=== PATIENT | female | born 1990 | race Caucasian/White ===

== ENCOUNTER 2019-10-19 09:52 | Day surgery (SDC) | payer OTHER ==
[2019-10-19] MEDS ORDERED: MORPHINE 4 MG/ML SYR ONE ×2 (10:13→12:15)
[2019-10-19] MEDS ORDERED: ONDANSETRON 4 MG/2 ML VIAL ONE ×2 (10:13→13:31)
[2019-10-19] MEDS ORDERED: NA CHLORIDE 0.9% 1,000 ML ONE ×2 (10:13→12:37)
[2019-10-19 10:30] LABS: Absolute Lymphocytes (CBC) 0.7 K/uL (0.7-4.9); Basophils % 0.5 % (0-1.3); Hematocrit 41.3 % (36.0-45.0); Lymphocytes % 6.5 % (15.3-44.8); MPV 8.1 fL (7.6-11.3); RBC Red Blood Cell Count 4.41 M/uL (3.86-4.86)
[2019-10-19 10:43] LABS: Bilirubin Direct 0.1 mg/dL (0-0.2); Bilirubin Total 0.7 mg/dL (0.2-1.0); Potassium 3.7 mmol/L (3.5-5.1)
[2019-10-19 10:44] LABS: Albumin 4.1 g/dL (3.4-5.0); Protein, Total 8.2 g/dL (6.4-8.2)
--- OUTSIDE RECORDS SUMMARY | 2019-10-19 11:28 | XMS REPORT ---
:1990 Author Organization [facility] t Address [address] [place] [address] Care Team Providers Name Role Phone Unavailable Unavailable Unavailable Payers Payer Name Policy Type Policy Number Effective Date Expiration D ate Problems This patient has no known problems. Allergies, Adverse Reactions, Alerts Allergy Name Allergy Status Severity Reaction(s) Onset Inactive Treat ing Comments Type Date Date Clinician No Known Drug DA Active U Intolerances 2-05 00:00: 00 Medications This patient has no known medications. Results Test Description Test Time Test Comments Text Results Atomic Results Result Comments HGB HCT 2019-08-19 05:05:00 Test Item Value Reference Range Comments HEMOGLOBIN (test code = HGB) 10.3 g/dL 10.7-13.9 HEMATOCRIT (test code = HCT) 30.5 % 32.1-42.1 AG HEPATITIS B [id number] 17:56:00 Test Item Value Reference Range Comments AG HEPATITIS B SURFACE (test code = HBSAG) NONREACTIVE NONRE ACTIVE IS CONSENT FORM SIGNED FOR HIV TESTING? YAB HEPATITIS C [id number] 17:56:00 Test Item Value Reference Range Comments AB HEPATITIS C (test code = HCVAB) NONREACTIVE NONREACTIVE SIGNAL TO CUTOFF (test code = CUTOFF) 0.15 <0.80 IS CONSENT FORM SIGNED FOR HIV TESTING? YAB [id number] 17:56:00 Test Item Value Reference Range Comments AB TREPONEMA (test code = TREPAB) NONREACTIVE NONREACTIVE IS CONSENT FORM SIGNED FOR HIV TESTING? YAB HIV 1 17:56:00 Test Item Value Reference Range Comments AB HIV 1 2 (test code = NONREACTIVE NONREACTIVE Done b y Siemens Centaur 4th [id number]) Gen HIV Ag/Ab Co mbo Screen IS CONSENT FORM SIGNED FOR HIV TESTING? YAG HEPATITIS B [id number] 17:21:00 Test Item Value Reference Range Comments AG HEPATITIS B SURFACE (test code = HBSAG) NONREACTIVE NONRE ACTIVE IS CONSENT FORM SIGNED FOR HIV TESTING? YAB HEPATITIS C [id number] 17:21:00 Test Item Value Reference Range Comments AB HEPATITIS C (test code = HCVAB) NONREACTIVE SIGNAL TO CUTOFF (test code = CUTOFF) <0.80 IS CONSENT FORM SIGNED FOR HIV TESTING? YAB [id number] 17:21:00 Test Item Value Reference Range Comments AB TREPONEMA (test code = TREPAB) NONREACTIVE NONREACTIVE IS CONSENT FORM SIGNED FOR HIV TESTING? YAB HIV 1 17:21:00 Test Item Value Reference Range Comments AB HIV 1 2 (test code = EPH76AF) NONREACTIVE IS CONSENT FORM SIGNED FOR HIV TESTING? YCBC W/AUTO [id number] 16:36:00 Test Item Value Reference Range Comments WHITE BLOOD CELL (test code = WBC) 11.3 K/mm3 6.6-12.1 RED BLOOD CELL (test code = RBC) 3.66 M/mm3 3.45-5.01 HEMOGLOBIN (test code = HGB) 12.2 g/dL 10.7-13.9 HEMATOCRIT (test code = HCT) 35.2 % 32.1-42.1 MEAN CELL VOLUME (test code = MCV) 96 fL 84.1-94.8 MEAN CELL HGB (test code = MCH) 33.3 pg 27-35 MEAN CELL HGB CONCETRATION (test code = MCHC) 34.7 gm/dL 32 .2-34.1 RED CELL DISTRIBUTION WIDTH (test code = RDW) 13.1 % 12 .4-16.5 PLATELET COUNT (test code = PLT) 247 K/mm3 133-385 MEAN PLATELET VOLUME (test code = MPV) 10.4 fl 9.1-12.7 NEUTROPHIL % (test code = NT%) 74.5 % 56.5-79.4 LYMPHOCYTE % (test code = LY%) 16.7 % 14.3-34.3 MONOCYTE % (test code = MO%) 6.3 % 5.1-10.4 EOSINOPHIL % (test code = EO%) 1.7 % 0.1-3.0 BASOPHIL % (test code = BA%) 0.4 % 0.1-1.0 NEUTROPHIL # (test code = NT#) 8.5 K/mm3 LYMPHOCYTE # (test code = LY#) 1.9 K/mm3 MONOCYTE # (test code = MO#) 0.7 K/mm3 EOSINOPHIL # (test code = EO#) 0.19 K/mm3 BASOPHIL # (test code = BA#) 0.0 K/mm3 RBC MORPHOLOGY REQUIRED (test code = RBCM) NORMAL MADDISON L PLATELET MORPHOLOGY REQUIRED (test code = PLTMR) NORMAL NORMAL URINALYSIS W/O [id number] 16:36:00 Test Item Value Reference Range Comments UA GLUCOSE DIPSTICK (test code = DGLUU) NEGATIVE NEGATIVE UA KETONE DIPSTICK (test code = KETU) NEGATIVE NEGATIVE UA PROTEIN DIPSTICK (test code = PROU) NEGATIVE NEGATIVE IS NURSE PERFORMING TEST? N
--- NOTE | 2019-10-19 11:56 | RAD REPORT ---
EXAM DESCRIPTION: CT - Abdomen Pelvis W Contrast - 10/19/2019 11:37 am CLINICAL HISTORY: ABD PAIN COMPARISON: No comparisons TECHNIQUE: Biphasic, helical CT imaging of the abdomen and pelvis was performed following 100 ml non -ionic IV contrast. No oral contrast given. All CT scans are performed using dose optimization technique as appropriate and may include automated exposure control or mA/KV adjustment according to patient size. FINDINGS: No suspicious findings in the lung bases. The liver, spleen, and pancreas show no suspicious findings. Gallbladder and biliary tree are also wi thout suspicious finding. Severe hydronephrosis is present in the right collecting system. There is pronounced dilatation of th e pelvis, calices and ureters down to the pelvic inlet where there is a 9 millimeter obstructing ston e. No other obstructing or nonobstructing calculi seen. Right renal function is delayed. Stranding an d fluid are present in the perinephric fat. No pyelonephritis findings. No solid mass lesion identifi able. On a KUB projection the obstructing stone is approximately 1.5 cm inferior to the right sacral ala. Normal function of the left kidney with no hydronephrosis, mass, pyelonephritis or acute left side fi nding. Urinary bladder is fully contracted limiting assessment. No bladder calculus seen. No adrenal abnormalities. Uterus and ovaries show no suspicious findings. No dilated bowel loops or bowel wall thickening. No free air, free fluid or inflammatory stranding. No hernia, mass or bulky lymphadenopathy. No suspicious bony findings. IMPRESSION: Severe right-sided hydronephrosis secondary to an obstructing 9 millimeter stone at the pelvic inlet. On a KUB projection the obstructing stone is inferior to the right sacral ala.
[2019-10-19 12:15] LABS: Urine Blood 3+ (NEG); Urine Glucose NEGATIVE (NEG); Urine Protein 1+ (NEG); Urine Specific Gravity 1.025 (1.005-1.030)
--- NOTE | 2019-10-19 12:20 | ER ---
Nurse's Notes [facility] Name: Stalin Dumont Age: 29 yrs Sex: Female : 1990 Arrival Date: 10/19/2019 Time: 09:53 Bed 19 Private MD: Diagnosis: Hydronephrosis with renal and ureteral calculous obstruction Presentation: 10/18 10:06 Acuity: KYARA 3 sv 10:06 Chief complaint: Patient states: RUQ pain that radiates to LUQ since 2200 yesterday, sv reports chills/fever Tmax 99, vomiting as well. Denies cough/congestion. Reports s/o on 08/18/19 and has had her menstrual cycle for 3 weeks now and started control as well. Coronavirus screen: Proceed with normal triage. Patient denies a cough. Patient denies shortness of breath or difficulty breathing. Patient denies measured and/or subjective temperature greater than 100.4F prior to today's visit. Patient denies travel on a cruise ship or to a country the [facility] currently lists as an affected area. Patient denies contact with known and/or suspected case of COVID-19. Ebola Screen: No symptoms or risks identified at this time. Initial Sepsis Screen: Does the patient meet any 2 criteria? No. Patient's initial sepsis screen is negative. Does the patient have a suspected source of infection? No. Patient's initial sepsis screen is negative. Risk Assessment: Do you want to hurt yourself or someone else? Patient reports no desire to harm self or others. Onset of symptoms was October 18, 2019. 10:06 Method Of Arrival: Ambulatory sv Triage Assessment: 10:06 General: Appears uncomfortable, slender, well developed, Behavior is calm, cooperative, sv appropriate for age. Pain: Complains of pain in right upper quadrant and left upper quadrant Pain currently is 9 out of 10 on a pain scale. Pain began 1 day ago. Is continuous, Aggravated by increased activity, repositioning, Noted to be grimacing. Neuro: Level of Consciousness is awake, alert, obeys commands, Oriented to person, place, time, situation, Moves all extremities. Full function Gait is steady. Respiratory: Airway is patent Respiratory effort is even, unlabored, Respiratory pattern is regular, symmetrical. GI: Abdomen is flat, Abd is soft X 4 quads Abdomen is tender to palpation in right upper quadrant and left upper quadrant Reports upper abdominal pain, vomiting. Derm: Skin is pink, warm \T\ dry. 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 - Social history:: Smoking status: Patient denies any tobacco usage or history of. Patient uses alcohol, occasionally. Screenin:30 Abuse screen: Denies threats or abuse. Denies injuries from another. Nutritional sv screening: No deficits noted. Tuberculosis screening: No symptoms or risk factors identified. Fall Risk None identified. Assessment: 10:31 Reassessment: Patient appears in no apparent distress at this time. Patient and/or sv family updated on plan of care and expected duration. Pain level reassessed. Patient is alert, oriented x 3, equal unlabored respirations, skin warm/dry/pink. Patient states feeling better. Patient states symptoms have improved. 12:10 Reassessment: No changes from previously documented assessment. Patient and/or family ll1 updated on plan of care and expected duration. Pain level reassessed. Patient is alert, oriented x 3, equal unlabored respirations, skin warm/dry/pink. GI: Abdomen is flat, Bowel sounds present X 4 quads. Abd is soft X 4 quads Abdomen is tender to palpation in right upper quadrant and left upper quadrant Reports upper abdominal pain, nausea, vomiting. 12:46 GI: Bowel sounds present X 4 quads. ll1 Vital Signs: 10:06 BP 115 / 71; Pulse 60; Resp 20; Temp 98.6(O); Pulse Ox 99% ; Weight 52.16 kg; Height 5 sv ft. 5 in. (165.10 cm); Pain 9/10; 11:00 BP 125 / 77; Pulse 67; Resp 16; Pulse Ox 100% ; sv 11:00 Pain 3/10; sv 12:02 Pain 3/10; sv 10:06 Body Mass Index 19.14 (52.16 kg, 165.10 cm) sv ED Course: 09:53 Patient arrived in ED. fj1 09:56 Leeann Triplett RN is Primary Nurse. sv 09:56 [facility] Morrison [facility] pm1 09:56 Yunior Paige MD is Attending Physician. pm1 10:06 Triage completed. sv 10:06 Arm band placed on Patient placed in an exam room, on a stretcher. sv 10:06 Patient has correct armband on for positive identification. Placed in gown. Bed in low sv position. Call light in reach. Pulse ox on. NIBP on. Door closed. Head of bed elevated. 10:15 Inserted saline lock: 20 gauge in right antecubital area, using aseptic technique. sv Blood collected. Flushed right antecubital with 5 ml normal saline. 10:31 Awaiting lab results, Awaiting CT Scan. sv 10:31 Warm blanket given. Pillow given. sv 11:37 CT Abd/Pelvis - IV Contrast Only In Process Unspecified. EDMS 12:03 Primary Nurse role handed off by Leeann Triplett RN sv 12:06 Report given to Jaquan WYATT. sv 12:07 Jaquan Quinones RN is Primary Nurse. ll1 12:18 Sharee Vivar MD is Hospitalizing Provider. pm1 12:45 No provider procedures requiring assistance completed. Patient admitted, IV remains in ll1 place. Administered Medications: 10:15 Drug: NS 0.9% 1000 ml Route: IV; Rate: 1000 ml; Site: right antecubital; sv 12:10 Follow up: Response: No adverse reaction; RASS: Alert and Calm (0); IV Status: ll1 Completed infusion; IV Intake: 1000ml 10:15 Drug: Zofran (Ondansetron) 4 mg Route: IVP; Site: right antecubital; sv 11:00 Follow up: Response: No adverse reaction sv 10:17 Drug: morphine 4 mg {Note: rass2.} Route: IVP; Site: right antecubital; sv 11:00 Follow up: Pain 3/10; Response: No adverse reaction; Marked relief of symptoms; Pain is sv decreased; RASS: Alert and Calm (0) 12:02 Follow up: Pain 3/10 Adult; Response: No adverse reaction; Marked relief of symptoms; sv Pain is decreased; RASS: Alert and Calm (0) 12:16 Drug: morphine 4 mg Route: IVP; Site: left antecubital; 1 12:43 Follow up: Response: No adverse reaction; Nausea is increased; RASS: Alert and Calm (0) 1 12:44 Drug: NS 0.9% 1000 ml Route: IV; Rate: 125 ml/hr; Site: right antecubital; 1 12:44 Follow up: IV Status: Completed infusion; IV Intake: 1ml 1 Intake: 12:10 IV: 1000ml; Total: 1000ml. ll1 12:44 IV: 1ml; Total: 1001ml. 1 Outcome: 12:19 Decision to Hospitalize by Provider. pm1 12:46 Discharged to day surgery ll1 12:46 Condition: stable 12:46 Instructed on the need for admit. 12:48 Patient left the ED. 1 Signatures: Dispatcher [employer] Leeann Johnson RN RN Sundeep Morrison, AUBREE SOLE TRIMMER pm1 Ej Palm 1 Jaquan Quinones RN RN 1 Corrections: (The following items were deleted from the chart) 12:03 11:00 Response: No adverse reaction; Marked relief of symptoms sv sv 12:03 12:01 Pain 3/10 Adult; Response: No adverse reaction; Marked relief of symptoms; Pain sv is decreased; RASS: Alert and Calm (0) sv
--- NOTE | 2019-10-19 12:20 | EDPHYS ---
Physician Documentation [facility] Name: Stalin Dumont Age: 29 yrs Sex: Female : 1990 Arrival Date: 10/19/2019 Time: 09:53 Bed 19 Private MD: EDOUARD Physician Yunior Paige HPI: 10/18 10:50 This 29 yrs old Female presents to ER via Ambulatory with complaints of pm1 Abdominal Pain. 10:50 The patient presents with abdominal pain in the right upper quadrant. Onset: The pm1 symptoms/episode began/occurred last night, at 22:00. The symptoms radiate to left upper quadrant. Associated signs and symptoms: Pertinent positives: fever, vomiting, Menses for 3 weeks, Pertinent negatives: diarrhea, dysuria. The symptoms are described as achy. Modifying factors: The symptoms are alleviated by nothing, the symptoms are aggravated by nothing. Severity of pain: in the emergency department the pain is actually worse is a 9 / 10. The patient has not experienced similar symptoms in the past. 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 - Social history:: Smoking status: Patient denies any tobacco usage or history of. Patient uses alcohol, occasionally. ROS: 10:50 Neck: Negative for injury, pain, and swelling, Cardiovascular: Negative for chest pain, pm1 palpitations, and edema, Respiratory: Negative for shortness of breath, cough, wheezing, and pleuritic chest pain. 10:50 Back: Negative for injury and pain, MS/Extremity: Negative for injury and deformity, Skin: Negative for injury, rash, and discoloration. 10:50 Neuro: Negative for headache, weakness, numbness, tingling, and seizure. 10:50 Constitutional: Positive for chills, fever. 10:50 Abdomen/GI: Positive for abdominal pain, nausea and vomiting, Negative for diarrhea, constipation. Exam: 10:50 Constitutional: This is a well developed, well nourished patient who is awake, alert, pm1 and in no acute distress. Head/Face: Normocephalic, atraumatic. Chest/axilla: Normal chest wall appearance and motion. Nontender with no deformity. No lesions are appreciated. Cardiovascular: Regular rate and rhythm with a normal S1 and S2 10:50 Back: No spinal tenderness. No costovertebral tenderness. Full range of motion. Skin: Warm, dry with normal turgor. Normal color with no rashes, no lesions, and no evidence of cellulitis. MS/ Extremity: Pulses equal, no cyanosis. Neurovascular intact. Full, normal range of motion. 10:50 Respiratory: Exam negative for acute changes, the patient does not display signs of respiratory distress, Respirations: normal. 10:50 Abdomen/GI: Inspection: abdomen appears normal, Palpation: soft, in all quadrants, mild abdominal tenderness, in the right upper quadrant, mass, is not appreciated, rebound tenderness, is not appreciated. 10:50 Neuro: Exam negative for acute changes, Orientation: is normal, Mentation: is normal, Motor: is normal, moves all fours. Vital Signs: 10:06 BP 115 / 71; Pulse 60; Resp 20; Temp 98.6(O); Pulse Ox 99% ; Weight 52.16 kg; Height 5 sv ft. 5 in. (165.10 cm); Pain 9/10; 11:00 BP 125 / 77; Pulse 67; Resp 16; Pulse Ox 100% ; sv 11:00 Pain 3/10; sv 12:02 Pain 3/10; sv 10:06 Body Mass Index 19.14 (52.16 kg, 165.10 cm) sv MDM: 09:58 Patient medically screened. [facility] 10:56 Data reviewed: vital signs. Data interpreted: Pulse oximetry: on room air is 99 %. pm1 Interpretation: normal. 12:07 Counseling: I had a detailed discussion with the patient and/or guardian regarding: the pm1 historical points, exam findings, and any diagnostic results supporting the discharge/admit diagnosis, lab results, radiology results. 12:14 Physician consultation: Sharee Vivar MD was called at 12:16, was contacted at 12:16, pm1 regarding consult, patient's condition. 10/18 10:03 Order name: Basic Metabolic Panel; Complete Time: 10:47 pm1 10/18 10:03 Order name: CBC with Diff; Complete Time: 10:37 pm1 10/18 10:03 Order name: Creatinine for Radiology; Complete Time: 10:56 pm1 10/18 10:03 Order name: Hepatic Function; Complete Time: 10:47 pm1 10/18 10:03 Order name: Lipase; Complete Time: 10:47 pm1 10/18 12:07 Order name: Urine Dipstick--Ancillary (enter results); Complete Time: 12:20 bd 10/18 10:03 Order name: IV Saline Lock; Complete Time: 10:33 pm1 10/18 10:04 Order name: CT Abd/Pelvis - IV Contrast Only; Complete Time: 11:57 pm1 10/18 12:07 Order name: Urine --Ancillary (enter results); Complete Time: 12:20 bd 10/18 10:03 Order name: Labs collected and sent; Complete Time: 10:33 pm1 10/18 10:03 Order name: Urine Dipstick-Ancillary (obtain specimen); Complete Time: 11:37 pm1 10/18 10:03 Order name: Urine Test (obtain specimen); Complete Time: 11:37 pm1 10/18 12:21 Order name: NPO; Complete Time: 12:44 pm1 Administered Medications: 10:15 Drug: NS 0.9% 1000 ml Route: IV; Rate: 1000 ml; Site: right antecubital; sv 12:10 Follow up: Response: No adverse reaction; RASS: Alert and Calm (0); IV Status: ll1 Completed infusion; IV Intake: 1000ml 10:15 Drug: Zofran (Ondansetron) 4 mg Route: IVP; Site: right antecubital; sv 11:00 Follow up: Response: No adverse reaction sv 10:17 Drug: morphine 4 mg {Note: rass2.} Route: IVP; Site: right antecubital; sv 11:00 Follow up: Pain 3/10; Response: No adverse reaction; Marked relief of symptoms; Pain is sv decreased; RASS: Alert and Calm (0) 12:02 Follow up: Pain 3/10 Adult; Response: No adverse reaction; Marked relief of symptoms; sv Pain is decreased; RASS: Alert and Calm (0) 12:16 Drug: morphine 4 mg Route: IVP; Site: left antecubital; ll1 12:43 Follow up: Response: No adverse reaction; Nausea is increased; RASS: Alert and Calm (0) ll1 12:44 Drug: NS 0.9% 1000 ml Route: IV; Rate: 125 ml/hr; Site: right antecubital; ll1 12:44 Follow up: IV Status: Completed infusion; IV Intake: 1ml ll1 Disposition: 10/19/19 12:19 Hospitalization ordered by Sharee Vivar for Observation. Preliminary diagnosis is Hydronephrosis with renal and ureteral calculous obstruction. - Bed requested for DAY SURGERY OTHER. - Status is Observation. ll1 - Condition is Stable. - Problem is new. - Symptoms have improved. Addendum: 10/21/2019 10:00 Co-signature as Attending Physician, Yunior Paige MD I agree with the assessment and c jacobsen plan of care. Signatures: Dispatcher [employer] EDLeeann Rushing, RN EDMUNDO Yunior Paige MD MD cha Marinas, Patrick, CONTRACT ADMINISTRATION SPECIALIST CONTRACT ADMINISTRATION SPECIALIST pm1 Jaquan Quinones RN RN [facility] Corrections: (The following items were deleted from the chart) 10/18 12:20 12:19 Hospitalization Ordered by Sharee Vivar MD for Observation. Preliminary pm1 diagnosis is Hydronephrosis with renal and ureteral calculous obstruction. Bed requested for Telemetry/MedSurg (observation). Status is Observation. Condition is Stable. Problem is new. Symptoms have improved. pm1 12:48 12:20 10/19/2019 12:19 Hospitalization Ordered by Sharee Vivar MD for Observation. ll1 Preliminary diagnosis is Hydronephrosis with renal and ureteral calculous obstruction. Bed requested for DAY SURGERY OTHER. Status is Observation. Condition is Stable. Problem is new. Symptoms have improved. pm1
--- OUTSIDE RECORDS SUMMARY | 2019-10-19 12:54 | XMS REPORT ---
:1990 Author Organization [facility] t Address [address] [place] [address] Care Team Providers Name Role Phone Unavailable [...] HCT) 30.5 % 32.1-42.1 AG HEPATITIS B [id number] 17:56:00 Test Item Value Reference Range Comments AG HEPATITIS B SURFACE (test code = HBSAG) NONREACTIVE NONRE ACTIVE IS CONSENT FORM SIGNED FOR HIV TESTING? YAB HEPATITIS C [id number] 17:56:00 Test Item Value Reference Range Comments AB HEPATITIS C (test code = HCVAB) NONREACTIVE NONREACTIVE SIGNAL TO CUTOFF (test code = CUTOFF) 0.15 <0.80 IS CONSENT FORM SIGNED FOR HIV TESTING? YAB [id number] 17:56:00 Test Item Value Reference Range Comments AB TREPONEMA (test code = TREPAB) NONREACTIVE NONREACTIVE IS CONSENT FORM SIGNED FOR HIV TESTING? YAB HIV 1 17:56:00 Test Item Value Reference Range Comments AB HIV 1 2 (test code = NONREACTIVE NONREACTIVE Done b y Siemens Centaur 4th [id number]) Gen HIV Ag/Ab Co mbo Screen IS CONSENT FORM SIGNED FOR HIV TESTING? YAG HEPATITIS B [id number] 17:21:00 Test Item Value Reference Range Comments AG HEPATITIS B SURFACE (test code = HBSAG) NONREACTIVE NONRE ACTIVE IS CONSENT FORM SIGNED FOR HIV TESTING? YAB HEPATITIS C [id number] 17:21:00 Test Item Value Reference Range Comments AB HEPATITIS C (test code = HCVAB) NONREACTIVE SIGNAL TO CUTOFF (test code = CUTOFF) <0.80 IS CONSENT FORM SIGNED FOR HIV TESTING? YAB [id number] 17:21:00 Test Item Value Reference Range Comments AB TREPONEMA (test code = TREPAB) NONREACTIVE NONREACTIVE IS CONSENT FORM SIGNED FOR HIV TESTING? YAB HIV 1 17:21:00 Test Item Value Reference Range Comments AB HIV 1 2 (test code = FLJ37MI) NONREACTIVE IS CONSENT FORM SIGNED FOR HIV TESTING? YCBC W/AUTO [id number] 16:36:00 Test Item Value Reference Range Comments [...] code = PLTMR) NORMAL NORMAL URINALYSIS W/O [id number] 16:36:00 Test Item Value Reference Range Comments UA GLUCOSE DIPSTICK (test code = DGLUU) NEGATIVE NEGATIVE UA KETONE DIPSTICK (test code = KETU) NEGATIVE NEGATIVE UA PROTEIN DIPSTICK (test code = PROU) NEGATIVE NEGATIVE IS NURSE PERFORMING TEST? N
[2019-10-19] MEDS ORDERED: GENTAMICIN 100 MG/100 ML BAG 100 ML IV ONE (13:20)
[2019-10-19] MEDS ORDERED: MIDAZOLAM HCL 2 MG/2 ML INJ ONE (13:30)
[2019-10-19] MEDS ORDERED: dexAMETHasone 10 MG/ML VIAL ONE (13:30)
[2019-10-19] MEDS ORDERED: propofoL 200 MG/20 ML VIAL IV ONE (13:30)
[2019-10-19] MEDS ORDERED: FENTANYL CITR 100 MCG/2 ML ONE (13:30)
[2019-10-19] MEDS ORDERED: LIDOCAINE 1% MPF 5 ML VIAL ONE (13:31)
--- NOTE | 2019-10-19 14:06 | CON ---
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 Pain is intractable in the emergency room. CT showed a 9 mm stone in the right lower ureter over the sacrum with severe hydroureteroneph rosis. We gave her all the general information, alternatives, and risks of proceeding with the stent . Due to the state of emergency, we are not able to do any major surgery right now as an emergency, so we thus placed a stent and later on, we can do shockwave lithotripsy or ureteroscopy. Allergies: NO KNOWN DRUG ALLERGIES. Medications: Sertraline and control pills. Past Medical History: Anxiety. Past Surgical History: . Immunizations: Up to date. Social History: No history of smoking. No tobacco use. Review of Systems: Otherwise negative. Physical Examination: Vital Signs: BP 115/71, pulse 60, respirations 20, temperature 98.6, pulse ox 99%. Weight 52 kg, he ight 5 feet 5 inches. HEENT: Atraumatic, normocephalic. Neck: Supple. Chest: Clear. Abdomen: Soft, nontender. Extremities: Normal range of motion. Laboratory Studies: CBC shows white count 10.8, H and H 14 and 41, platelet count 249. Chemistry sh ows sodium 136, potassium 3.7, chloride 108, carbon dioxide 21, BUN 15, creatinine 1.2, GFR 54, gluco se 116. Urine study showed pH 6.0, ketones 2+, blood 3+, nitrite negative, esterase negative. Pregn joana test negative. Assessment: 9 mm stone in the right lower ureter over the sacrum. Plan: Cystoscopy, retrograde stent placement. All the general information, alternatives, and risks were given. Patient wishes to proceed. OSITO/AZAM Voice ID: [id number] Report ID: [id number]
[2019-10-19] MEDS ORDERED: KETOROLAC 30 MG/ML INJ ONE (14:07)
[2019-10-19 14:45] VITALS: O2SAT 100
--- NOTE | 2019-10-19 14:50 | RAD REPORT ---
EXAM DESCRIPTION: RAD - Urethrocystogrphy Retrograde - 10/19/2019 2:41 pm CLINICAL HISTORY: ICD N 20.0 FINDINGS: 15 fluoroscopic spot images obtained. Fluoroscopy time 2.49 minutes Right ureter was cannulated and contrast administered. Subsequently a right ureteral stent was placed . Examination was performed by
[2019-10-19 15:37] VITALS: BP 105/73; TEMP 98.6
== END 2019-10-19 15:59 | disposition home or self-care (01) ==
LOC: ER 09:52 → DS 12:51
PROVIDERS: ATTEND Urology
PROC: 0T768DZ Dilation of Right Ureter with Intraluminal Device, Via Natural or Artificial Opening Endoscopic (ICD-10-PCS; principal; 2019-10-19 14:00)
DX: N13.2 Hydronephrosis with renal and ureteral calculous obstruction (principal); Q62.39 Other obstructive defects of renal pelvis and ureter; F41.9 Anxiety disorder, unspecified
CPT/HCPCS: 85025; 80048; 36415; 81025; 80076; 81003; 83690; 74177; 74450; 51610; 52332; Q9967; J2704; J2250; J3010; J1100; J1580; J7030 ×2; J2405 ×2; 96361; 96374; 96375; 99284